=== PATIENT | female | born 1995 | race Caucasian/White ===

== ENCOUNTER 2017-01-22 04:55 | Emergency (ER) | payer BC ==
--- NOTE | 2017-01-22 08:41 | ED ORDER SUMMARY ---
..... Patient: LUIS F PATEL OrderSheet [facility] VisitID: [id number] [place] [address] 21y, F Registration Date/Time: 01/22/2017 ORDER SHEET Weight: 60.7 kg Allergies: No Known Drug Allergy GENERAL ORDERS: CBC w Diff Urgent (05:17 01/22/2017 Tricia JORDAN) (Ack 5:20 [facility] Traffic Analysis Technician) (5:22 TBowen R.N.) CMP Urgent (05:01/22/2017 Tricia JORDAN) (Ack 5:20 [facility] Traffic Analysis Technician) (5:22 TBowen R.N.) UA-Culture if indicated Urgent (05:01/22/2017 Tricia JORDAN) (Ack 5:20 [facility] Traffic Analysis Technician) (5:22 TBowen R.N.) Lipase Urgent (05:17 01/22/2017 Tricia JORDAN) (Ack 5:20 [facility] Traffic Analysis Technician) (5:22 TBowen R.N.) US Abdomen Limited (Yes) (right flank pain) Urgent (05:55 01/22/2017 Tricia JORDAN) (Ack 6:03 [facility] Traffic Analysis Technician) (8:31 LSullivan R.N.) (Cancelled: Other8:41 Tricia JORDAN) US Abdomen Complete (Yes) Urgent (08:41 01/22/2017 Tricia JORDAN) (8:50 LSullivan R.N.) MEDICATION ORDERS: IV FLUIDS: IV Saline Lock (05:17 01/22/2017 Tricia JORDAN) (5:22 TBowen R.N.) ORDER SHEET NOTES: [Electronically signed by Sara Hurtado R.N. (09:28 01/22/2017)] [Electronically signed by Fly Coleman MD (21:08 01/26/2017)] [Electronically locked/signed by Sara Hurtado R.N. (09:28 01/22/2017)]
--- NOTE | 2017-01-22 08:41 | ED CLINICAL REPORT ---
Clinical Report - Physicians/Mid Levels [facility] [address] [place] [address] 01/22/2017 4:59 Patient: LUIS F PATEL Time Seen: 05:16 Jan 22 2017. Arrived- By private vehicle. Historian- patient and mother. CPT: ER phys charges level 4 (#[id number]). HISTORY OF PRESENT ILLNESS Chief Complaint: FLANK PAIN. This started today About 2400 and is now gone. At its maximum, severity described as moderate. When seen in the E.D., it was gone. Modifying factors- worsened by movement. Relieved by rest. It is described as "pain" and sharp and it is described as located in the right flank. No nausea, vomiting or diarrhea. Similar symptoms previously: None. Recent medical care: Not recently seen/assessed. REVIEW OF SYSTEMS No constipation, black stools, hematemesis, difficulty with urination or pain with urination. No urinary frequency, fever, sore throat, chest pain or difficulty breathing. No cough, joint pain or skin rash. Currently . The patient has had chills. All systems otherwise negative, except as recorded above. PAST HISTORY See nurses notes. No history of peptic ulcer. No history of gallstones or bowel obstruction. Has not had urinary calculi. Medications: Vitamins Oral. Allergies: No Known Drug Allergy. SOCIAL HISTORY Never smoker. No alcohol use or drug use. ADDITIONAL NOTES The nursing notes have been reviewed. PHYSICAL EXAM Vital Signs: 01/22/2017 05:06 BP: 118/77. HR: 108. RR: 18. O2 saturation: 100%. Temp: 97.8 F. Pain level now: 5/10. Appearance: Alert. Patient in mild distress. Eyes: Pupils equal, round and reactive to light. Eyes normal inspection. ENT: Ears normal. Nose normal. Pharynx normal. Neck: Normal inspection. Neck supple. CVS: Normal heart rate and rhythm. Heart sounds normal. Pulses normal. Respiratory: No respiratory distress. Breath sounds normal. Chest nontender. Abdomen: Soft and nontender. Back: No CVA tenderness. (Tender over the the right paralumbar ssoft tissue.). Skin: Skin warm. Normal skin color. No rash. Extremities: Extremities exhibit normal ROM. No lower extremity edema. Neuro: Oriented X 3. No motor deficit. No sensory deficit. Reflexes normal. LABS, X-RAYS, AND EKG Abdominal Sonogram: (Mild bilateral hydroureter , no sign of kidney stone or gallbladder pathology.). The study was independently viewed by me and interpreted contemporaneously by me. Study included the upper abdomen and pelvis. Prior studies were not available for comparison. Laboratory Tests: UA-Culture if indicated: (CECILE: 01/22/2017 05:05) ( [facility] 01/22/[place] 05:46) Final results Test Result Flag Units (Reference) URINE COLOR YELLOW URINE APPEARANCE CLEAR URINE GLUCOSE NEGATIVE (NEGATIVE) URINE BILIRUBIN NEGATIVE (NEGATIVE) URINE KETONE NEGATIVE (NEGATIVE) URINE SPECIFIC GRAVITY 1.015 (1.010-1.030) URINE PH 6.5 (5.0-8.0) URINE PROTEIN NEGATIVE (NEGATIVE) URINE UROBILINOGEN 0.2 EU/dL (0.2-1.0) URINE NITRITE NEGATIVE (NEGATIVE) URINE BLOOD NEGATIVE (NEGATIVE) URINE LEUK ESTERASE NEGATIVE (NEGATIVE) URINE RBC 0-1 rbc/hpf (0-1) URINE WBC 0-1 wbc/hpf (0-1) URINE EPITHELIAL CELLS 0-1 EPI/hpf (0-5) URINE BACTERIA NONE SEEN (NONE SEEN) URINE COMMENT CULT NOT INDICATED URINE CULTURES ARE SET-UP BASED ON THE FOLLOWING CRITERIA:POSITIVE NITRITEPOSITIVE LEUKOCYTE ESTERASEGREATER THAN 10 WHITE BLOOD CELLSMODERATE (2+) OR GREATER BACTERIA CBC w Diff: (CECILE: 01/22/2017 05:13) ( [facility] [place] 01/22/2017 05:32) Final results Test Result Flag Units (Reference) WHITE BLOOD COUNT 10.2 K/uL (4.5-11.5) RED BLOOD COUNT 4.19 M/uL (4.00-5.20) HEMOGLOBIN 13.1 gm/dL (12.0-16.0) HEMATOCRIT 39.0 % (36.0-46.0) MEAN CELL VOLUME 93 fL (80-100) MEAN CORPUSCULAR HGB 31 pg (26-34) MEAN CORPUSCULAR HGB CONC 34 g/dL (31-37) RED CELL DISTRIBUTION WIDTH 13.1 % (11.6-14.8) PLATELET COUNT 260 K/uL (150-400) NEUTROPHIL % 75.3 H % (50-75) LYMPH % 18.4 L % (25-40) MONO % 5.6 % (3-14) EOSINOPHIL % 0.6 % (0-4) BASOPHIL % 0.1 % (0-2) CMP: (CECILE: 01/22/2017 05:13) ( [facility]sg[facility]cv[facility] 01/22/2017 05:41) Final results Test Result Flag Units (Reference) GLUCOSE 91 mg/dL (70-110) BUN 7 mg/dL (7-18) CREATININE 0.6 mg/dL (0.6-1.3) Estimated GFR >60 mL/min Estimated GFR- >60 mL/min Note: Persistent reduction over 3 months in eGFR<60 mL/min/1.73 m2 defines CKD. Patients with eGFR values>=60 mL/min/1.73 m2 may also have CKD if evidence ofpersistent proteinuria. Additional information may be foundat www.kidney.org. SODIUM 138 mmol/L (136-145) POTASSIUM 3.3 L mmol/L (3.5-5.1) CHLORIDE 102 mmol/L (98-107) CARBON DIOXIDE 25 mmol/L (21-32) CALCIUM 8.9 mg/dL (8.5-10.1) TOTAL PROTEIN 7.9 g/dL (6.4-8.2) ALBUMIN 3.5 g/dL (3.3-5.0) BILIRUBIN, TOTAL 0.3 mg/dL (0.0-1.0) ALKALINE PHOSPHATASE 62 U/L (46-116) AST (SGOT) 25 U/L (15-37) ALT (SGPT) 51 U/L (12-78) LIPASE 150 U/L (73-393) . PROGRESS AND PROCEDURES Course of Care: Heplock. Patient/family counseled. Disposition: Discharged. Condition: stable. CLINICAL IMPRESSION Acute lumbar strain. INSTRUCTIONS Apply moist heat for 15-20 minutes three times a day for one weeks until better. No strenuous activity. (Massage may help. Avoid bending and lifting.). Warnings: Further evaluation is necessary. GENERAL WARNINGS: Return or contact your physician immediately if your condition worsens or changes unexpectedly, if not improving as expected, or if other problems arise. Prescription Medications: Hydrocodone/APAP 5mg / 325mg: take 1 orally every 6 hours as needed for pain. Dispense twelve (12). No refill. Flexeril 5 mg: take 1 orally every 8 hours as needed for muscle spasm or pain. Dispense ten (10). No refills. Follow-up: Follow up with your doctor Family Doctor. in one week. Call for an appointment. Understanding of the discharge instructions verbalized by patient and parent. (Electronically signed by Fly Coleman MD 01/26/2017 21:08)
--- NOTE | 2017-01-22 08:41 | ED NURSING NOTES ---
Clinical Report - Nurses [facility] [address] [place] [address] 01/22/2017 4:59 Patient: LUIS F PATEL TRIAGE Triage time 05:06. Acuity: LEVEL 4. --05:10 Briseyda Gomes 05:06 01/22/17. BP: 118/77. HR: 108. RR: 18. O2 saturation: 100%. Temp: 97.8 F. Pain level now: 01/13. --05:10 Briseyda Gomes Chief Complaint: LOW BACK PAIN and FLANK PAIN. --09:28 Sara Hurtado R.N. Weight: 60.7 kg. Height/Length: 66 inches. BMI: 21.6. --05:08 Briseyda Gomes Medications Vitamins Oral. --09:25 Sara Hurtado R.N. Allergies No Known Drug Allergy. --09:25 Sara Hurtado R.N. History Arrived by private vehicle. Historian: patient. Accompanied by family. ( pt complains of right kidney pain that moves into her stomach). This started last night. She has had flank pain. Treatment PROCESSING MGR: None. PAST MEDICAL HX: Last normal menstrual period- Aug. Currently . Has had care by private doctor. SOCIAL HX: Never smoker. No alcohol use or drug use. No infectious disease exposure. SELF HARM ASSESSMENT: A self harm assessment was performed. The patient answered "no" to the question "Have you recently felt down, depressed, or hopeless?", "Have you noticed less interest or pleasure in doing things?", "Do you have thoughts of harming or killing yourself?", "Are you here because you tried to hurt yourself?", "Have you ever tried to hurt yourself before today?", "Have you recently had thoughts about harming or killing others?" and "Do you have any dangerous items in your possession?". FALL RISK ASSESSMENT: Fall risk assessment completed. No fall risk identified. NUTRITIONAL RISK ASSESSMENT: The nutritional risk assessment revealed no deficiencies. FUNCTIONAL ASSESSMENT: Functional assessment: no impairments noted. LEARNING NEEDS ASSESSMENT: The learning needs assessment revealed no barriers. ABUSE ASSESSMENT: Abuse assessment: The patient was asked "Do you feel safe in your home?". SKIN INTEGRITY ASSESSMENT: Skin integrity risk assessment completed. No skin integrity risk identified. --05:10 Briseyda Gomes Interventions ID band on patient. To treatment room. --05:10 Briseyda Gomes PHYSICAL ASSESSMENT Ambulatory to room. GENERAL / NEURO / PSYCH: Alert. Oriented X 4. Appears in no acute distress. HEENT: Mucous membranes are pink. RESPIRATORY: Respirations not labored. Breath sounds within normal limits. CVS: Normal heart rate and rhythm. Capillary refill less than 2 seconds. GI / : Abdomen soft and nontender. Bowel sounds within normal limits. No vaginal bleeding. No vaginal discharge. SKIN: Skin is warm and dry. --05:10 Briseyda Gomes NURSING PROGRESS NOTES Patient gowned. Patient identifiers checked. Call light placed in reach. Side rails up x 2. Bed placed in lowest position. Brakes of bed on. --05:11 Briseyda Gomes 05:22 01/22/2017 Site #1 started via IV in the left antecubital space with an 20g angiocath, with aseptic technique and good blood return; one attempt. Blood drawn: rainbow set. Labeled in the presence of the patient and sent to the lab. Saline lock flushed with 10 mL saline. --05:22 Briseyda Gomes ( 0515: I started a 20g IV on the left AC and troy labs from same, flushed with 20cc saline. No complications.). --05:36 Evangelist Duque R.N. ( report given Sara). --07:06 Briseyda Gomes 07:44 01/22/17. ( Ultrasound in room). --07:44 Sara Hurtado R.N. 08:20. ( ERMD talking with patient.). --08:30 Sara Hurtado R.N. 09:00 01/22/2017 Site #1 removed upon discharge. Catheter intact. Bandage applied. --09:25 Sara Hurtado R.N. DISPOSITION / DISCHARGE Departure time: 0900. Condition at departure: improved. No learning barriers present. Discharge instructions provided and reviewed with the patient. Reviewed medication(s) information. Prescription(s) given to the patient. Reviewed referral to family practice. Verbalized understanding. Written instructions provided. The patient was discharged home and accompanied by parent. She left the Emergency Department ambulatory and via private vehicle. --09:24 Sara Hurtado R.N. 09:22 01/22/17. BP: 110/63. HR: 78. RR: 18. O2 saturation: 100%. Temp: 98.2 F. Pain level now: 4/10. Additional comments: Pt states the ice pack helped, teaching done for discharge to alternate ice with warm packs, as needed to help pain. --09:24 Sara Hurtado R.N. Locked/Released at 01/22/2017 9:28 by Sara Hurtado R.N.
--- NOTE | 2017-01-22 08:41 | ED CLINICAL REPORT ---
Clinical Report - Physicians/Mid Levels [facility] [address] [place] [address] 01/22/2017 4:59 Patient: LUIS F PATEL Time Seen: 05:16 Jan 22 2017. Arrived- By private vehicle. Historian- patient and mother. CPT: ER phys charges level 4 (#[id number]). HISTORY OF PRESENT ILLNESS Chief Complaint: FLANK PAIN. This started today About 2400 and is now gone. At its maximum, severity described as moderate. When seen in the E.D., it was gone. Modifying factors- worsened by movement. Relieved by rest. It is described as "pain" and sharp and it is described as located in the right flank. No nausea, vomiting or diarrhea. Similar symptoms previously: None. Recent medical care: Not recently seen/assessed. REVIEW OF SYSTEMS No constipation, black stools, hematemesis, difficulty with urination or pain with urination. No urinary frequency, fever, sore throat, chest pain or difficulty breathing. No cough, joint pain or skin rash. Currently . The patient has had chills. All systems otherwise negative, except as recorded above. PAST HISTORY See nurses notes. No history of peptic ulcer. No history of gallstones or bowel obstruction. Has not had urinary calculi. Medications: Vitamins Oral. Allergies: No Known Drug Allergy. SOCIAL HISTORY Never smoker. No alcohol use or drug use. ADDITIONAL NOTES The nursing notes have been reviewed. PHYSICAL EXAM Vital Signs: 01/22/2017 05:06 BP: 118/77. HR: 108. RR: 18. O2 saturation: 100%. Temp: 97.8 F. Pain level now: 5/10. Appearance: Alert. Patient in mild distress. Eyes: Pupils equal, round and reactive to light. Eyes normal inspection. ENT: Ears normal. Nose normal. Pharynx normal. Neck: Normal inspection. Neck supple. CVS: Normal heart rate and rhythm. Heart sounds normal. Pulses normal. Respiratory: No respiratory distress. Breath sounds normal. Chest nontender. Abdomen: Soft and nontender. Back: No CVA tenderness. (Tender over the the right paralumbar ssoft tissue.). Skin: Skin warm. Normal skin color. No rash. Extremities: Extremities exhibit normal ROM. No lower extremity edema. Neuro: Oriented X 3. No motor deficit. No sensory deficit. Reflexes normal. LABS, X-RAYS, AND EKG Abdominal Sonogram: (Mild bilateral hydroureter , no sign of kidney stone or gallbladder pathology.). The study was independently viewed by me and interpreted contemporaneously by me. Study included the upper abdomen and pelvis. Prior studies were not available for comparison. Laboratory Tests: UA-Culture if indicated: (CECILE: 01/22/2017 05:05) ( [facility] 05:46) Final results Test Result Flag Units (Reference) URINE COLOR YELLOW URINE APPEARANCE CLEAR URINE GLUCOSE NEGATIVE (NEGATIVE) URINE BILIRUBIN NEGATIVE (NEGATIVE) URINE KETONE NEGATIVE (NEGATIVE) URINE SPECIFIC GRAVITY 1.015 (1.010-1.030) URINE PH 6.5 (5.0-8.0) URINE PROTEIN NEGATIVE (NEGATIVE) URINE UROBILINOGEN 0.2 EU/dL (0.2-1.0) URINE NITRITE NEGATIVE (NEGATIVE) URINE BLOOD NEGATIVE (NEGATIVE) URINE LEUK ESTERASE NEGATIVE (NEGATIVE) URINE RBC 0-1 rbc/hpf (0-1) URINE WBC 0-1 wbc/hpf (0-1) URINE EPITHELIAL CELLS 0-1 EPI/hpf (0-5) URINE BACTERIA NONE SEEN (NONE SEEN) URINE COMMENT CULT NOT INDICATED URINE CULTURES ARE SET-UP BASED ON THE FOLLOWING CRITERIA:POSITIVE NITRITEPOSITIVE LEUKOCYTE ESTERASEGREATER THAN 10 WHITE BLOOD CELLSMODERATE (2+) OR GREATER BACTERIA CBC w Diff: (CECILE: 01/22/2017 05:13) ( [facility] [place] 01/[place] 05:32) Final results Test Result Flag Units (Reference) WHITE BLOOD COUNT 10.2 K/uL (4.5-11.5) RED BLOOD COUNT 4.19 M/uL (4.00-5.20) HEMOGLOBIN 13.1 gm/dL (12.0-16.0) HEMATOCRIT 39.0 % (36.0-46.0) MEAN CELL VOLUME 93 fL (80-100) MEAN CORPUSCULAR HGB 31 pg (26-34) MEAN CORPUSCULAR HGB CONC 34 g/dL (31-37) RED CELL DISTRIBUTION WIDTH 13.1 % (11.6-14.8) PLATELET COUNT 260 K/uL (150-400) NEUTROPHIL % 75.3 H % (50-75) LYMPH % 18.4 L % (25-40) MONO % 5.6 % (3-14) EOSINOPHIL % 0.6 % (0-4) BASOPHIL % 0.1 % (0-2) CMP: (CECILE: 01/22/2017 05:13) ( MsgRcvd 01/22/2017 05:41) Final results Test Result Flag Units (Reference) GLUCOSE 91 mg/dL (70-110) BUN 7 mg/dL (7-18) CREATININE 0.6 mg/dL (0.6-1.3) Estimated GFR >60 mL/min Estimated GFR- >60 mL/min Note: Persistent reduction over 3 months in eGFR<60 mL/min/1.73 m2 defines CKD. Patients with eGFR values>=60 mL/min/1.73 m2 may also have CKD if evidence ofpersistent proteinuria. Additional information may be foundat www.kidney.org. SODIUM 138 mmol/L (136-145) POTASSIUM 3.3 L mmol/L (3.5-5.1) CHLORIDE 102 mmol/L (98-107) CARBON DIOXIDE 25 mmol/L (21-32) CALCIUM 8.9 mg/dL (8.5-10.1) TOTAL PROTEIN 7.9 g/dL (6.4-8.2) ALBUMIN 3.5 g/dL (3.3-5.0) BILIRUBIN, TOTAL 0.3 mg/dL (0.0-1.0) ALKALINE PHOSPHATASE 62 U/L (46-116) AST (SGOT) 25 U/L (15-37) ALT (SGPT) 51 U/L (12-78) LIPASE 150 U/L (73-393) . PROGRESS AND PROCEDURES Course of Care: Heplock. Patient/family counseled. Disposition: Discharged. Condition: stable. CLINICAL IMPRESSION Acute lumbar strain. INSTRUCTIONS Apply moist heat for 15-20 minutes three times a day for one weeks until better. No strenuous activity. (Massage may help. Avoid bending and lifting.). Warnings: Further evaluation is necessary. GENERAL WARNINGS: Return or contact your physician immediately if your condition worsens or changes unexpectedly, if not improving as expected, or if other problems arise. Prescription Medications: Hydrocodone/APAP 5mg / 325mg: take 1 orally every 6 hours as needed for pain. Dispense twelve (12). No refill. Flexeril 5 mg: take 1 orally every 8 hours as needed for muscle spasm or pain. Dispense ten (10). No refills. Follow-up: Follow up with your doctor Family Doctor. in one week. Call for an appointment. Understanding of the discharge instructions verbalized by patient and parent. (Electronically signed by Fly Coleman MD 01/26/2017 21:08)
--- NOTE | 2017-01-22 08:41 | ED ORDER SUMMARY ---
..... Patient: LUIS F PATEL OrderSheet [facility] VisitID: [id number] [place] [address] 21y, F Registration Date/Time: 01/22/2017 ORDER SHEET Weight: 60.7 kg Allergies: No Known Drug Allergy GENERAL ORDERS: CBC w Diff Urgent (05:17 01/22/2017 Tricia JORDAN) (Ack 5:20 CHagerty ER Hand Shoe Cutter) (5:22 TBowen R.N.) CMP Urgent (05:01/22/2017 Tricia JORDAN) (Ack 5:20 [facility] ER Hand Shoe Cutter) (5:22 TBowen R.N.) UA-Culture if indicated Urgent (05:01/22/2017 Tricia JORDAN) (Ack 5:20 [facility]ty ER Hand Shoe Cutter) (5:22 TBowen R.N.) Lipase Urgent (05:17 01/22/2017 Tricia JORDAN) (Ack 5:20 CHagerty ER Hand Shoe Cutter) (5:22 TBowen R.N.) US Abdomen Limited (Yes) (right flank pain) Urgent (05:55 01/22/2017 Tricia JORDAN) (Ack 6:03 CHagerty ER Hand Shoe Cutter) (8:31 LSullivan R.N.) (Cancelled: Other8:41 Tricia JORDAN) US Abdomen Complete (Yes) Urgent (08:41 01/22/2017 Tricia JORDAN) (8:50 LSullivan R.N.) MEDICATION ORDERS: IV FLUIDS: IV Saline Lock (05:17 01/22/2017 Tricia JORDAN) (5:22 TBowen R.N.) ORDER SHEET NOTES: [Electronically signed by Sara Hurtado R.N. (09:28 01/22/2017)] [Electronically signed by Fly Coleman MD (21:08 01/26/2017)] [Electronically locked/signed by Sara Hurtado R.N. (09:28 01/22/2017)]
--- NOTE | 2017-01-22 09:43 | DIAGNOSTIC IMAGING REPORT ---
PROCEDURE: US ABDOMEN ULTRASOUND-COMPLETE INDICATION: ABDOMINAL PAIN TECHNIQUE: Dneg scale and color Doppler sonographic images of the abdomen were obtained without comparison. COMPARISON: None. FINDINGS: The liver is normal in size, contour, and echotexture. No mass or intrahepatic biliary dilatation. The gallbladder is normal without stones or sludge. The wall is normal thickness measuring 1.7 mm No pericholecystic fluid or Larsen sign. The extrahepatic common duct is normal measuring 2.6 mm The visualized pancreas is normal without ductal dilatation or peripancreatic fluid collection. The abdominal aorta is normal in its course and caliber. The retrohepatic inferior vena cava is patent. There is appropriate hepatopetal flow in the portal vein. The right kidney measures 11.4 x 5.7 x 3.6 cm in length. The left kidney measures 9.8 x 6.1 x 5.9 cm in length. Both kidneys demonstrate mild nonobstructing hydronephrosis. Bilateral ureter jets were seen. Color Doppler imaging demonstrates normal blood flow in each kidney. The spleen is normal in size measuring 10.1 cm in length. There is no perihepatic or perisplenic ascites. Viable fetus seen with a heart rate of 162 IMPRESSION: 1. Normal abdominal ultrasound. viable fetus, heart rate of 162
--- NOTE | 2017-01-26 21:08 | ED MED RECONCILIATION SUMMARY ---
Patient: LUIS F PATEL Medication Reconciliation Report [facility] VisitID: [id number] [place] [address] 21y, F Registration Date/Time: 01/22/2017 Weight: 60.7 kg Height/Length: 66 in. BMI: 21.6 ALLERGIES: No Known Drug Allergy The patient's Home Medications are listed below: THE FOLLOWING MEDICATIONS NEED TO BE RECONCILED: Vitamins Oral The source(s) of the original Home Medication information: Not obtained. The following Medications were given to the patient in the Emergency Department: None. The following Medications were prescribed to the patient: Hydrocodone/APAP 5mg / 325mg: take 1 orally every 6 hours as needed for pain. Dispense twelve (12). No refill. -- Fly Coleman MD Flexeril 5 mg: take 1 orally every 8 hours as needed for muscle spasm or pain. Dispense ten (10). No refills. -- Fly Coleman MD
--- NOTE | 2017-01-26 21:08 | ED MED RECONCILIATION SUMMARY ---
Patient: LUIS F PATEL Medication Reconciliation Report [facility] VisitID: [id number] [place] [address] 21y, F Registration Date/Time: 01/22/2017 Weight: 60.7 kg Height/Length: 66 in. BMI: 21.6 ALLERGIES: No Known Drug Allergy The patient's Home Medications are listed below: THE FOLLOWING MEDICATIONS NEED TO BE RECONCILED: Vitamins Oral The source(s) of the original Home Medication information: Not obtained. The following Medications were given to the patient in the Emergency Department: None. The following Medications were prescribed to the patient: Hydrocodone/APAP 5mg / 325mg: take 1 orally every 6 hours as needed for pain. Dispense twelve (12). No refill. -- Fly Coleman MD Flexeril 5 mg: take 1 orally every 8 hours as needed for muscle spasm or pain. Dispense ten (10). No refills. -- Fly Coleman MD
--- NOTE | 2017-01-26 21:08 | ED DISCHARGE INSTRUCTIONS ---
Patient: LUIS F PATEL General Instructions [facility] VisitID: [id number] [place] [address] 21y, F Registration Date/Time: 01/22/2017 Acute lumbar strain. INSTRUCTIONS Apply moist heat for 15-20 minutes three times a day for one weeks until better. No strenuous activity. (Massage may help. Avoid bending and lifting.). Warnings: Further evaluation is necessary. GENERAL WARNINGS: Return or contact your physician immediately if your condition worsens or changes unexpectedly, if not improving as expected, or if other problems arise. Prescription Medications: Hydrocodone/APAP 5mg / 325mg: take 1 orally every 6 hours as needed for pain. Dispense twelve (12). No refill. Flexeril 5 mg: take 1 orally every 8 hours as needed for muscle spasm or pain. Dispense ten (10). No refills. Follow-up: Follow up with your doctor Family Doctor. in one week. Call for an appointment. Understanding of the discharge instructions verbalized by patient and parent. ADDITIONAL INFORMATION Back Pain [Acute Or Chronic] Back pain is usually caused by an injury to the muscles or ligaments of the spine. Sometimes the disks that separate each bone in the spine may bulge and cause pain by pressing on a nearby nerve. Back pain may also appear after a sudden twisting/bending force (such as in a car accident), after a simple awkward movement, or lifting something heavy with poor body positioning. In either case, muscle spasm is often present and adds to the pain. Acute back pain usually gets better in one to two weeks. Back pain related to disk disease, arthritis in the spinal joints or spinal stenosis (narrowing of the spinal canal) can become chronic and last for months or years. Unless you had a physical injury (for example, a car accident or fall) X-rays are usually not ordered for the initial evaluation of back pain. If pain continues and does not respond to medical treatment, x-rays and other tests may be performed at a later time. Home Care: You may need to stay in bed the first few days. But, as soon as possible, begin sitting or walking to avoid problems with prolonged bed rest (muscle weakness, worsening back stiffness and pain, blood clots in the legs). When in bed, try to find a position of comfort. A firm mattress is best. Try lying flat on your back with pillows under your knees. You can also try lying on your side with your knees bent up towards your chest and a pillow between your knees. Avoid prolonged sitting. This puts more stress on the lower back than standing or walking. During the first two days after injury, apply an ICE PACK to the painful area for 20 minutes every 2-4 hours. This will reduce swelling and pain. HEAT (hot shower, hot bath or heating pad) works well for muscle spasm. You can start with ice, then switch to heat after two days. Some patients feel best alternating ice and heat treatments. Use the one method that feels the best to you. You may use acetaminophen (Tylenol) or ibuprofen (Motrin, Advil) to control pain, unless another pain medicine was prescribed. [NOTE: If you have chronic liver or kidney disease or ever had a stomach ulcer or GI bleeding, talk with your doctor before using these medicines.] Be aware of safe lifting methods and do not lift anything over 15 pounds until all the pain is gone. Follow Up with your doctor or this facility if your symptoms do not start to improve after one week. Physical therapy may be needed. [NOTE: If X-rays were taken, they will be reviewed by a radiologist. You will be notified of any new findings that may affect your care.] Get Prompt Medical Attention if any of the following occur: Pain becomes worse or spreads to your legs Weakness or numbness in one or both legs Loss of bowel or bladder control Numbness in the groin or genital area Hydrocodone Bitartrate, Acetaminophen Oral tablet What is this medicine? ACETAMINOPHEN; HYDROCODONE (a set a BRIAN chino fen; valentin droe KOE done) is a pain reliever. It is used to treat mild to moderate pain. How should I use this medicine? Take this medicine by mouth. Swallow it with a full glass of water. Follow the directions on the prescription label. If the medicine upsets your stomach, take the medicine with food or milk. Do not take more than you are told to take. Talk to your instructor of sociology regarding the use of this medicine in children. This medicine is not approved for use in children. What side effects may I notice from receiving this medicine? Side effects that you should report to your doctor or health home care associate as soon as possible: allergic reactions like skin rash, itching or hives, swelling of the face, lips, or tongue breathing problems confusion feeling faint or lightheaded, falls stomach pain yellowing of the eyes or skin Side effects that usually do not require medical attention (report to your doctor or health home care associate if they continue or are bothersome): nausea, vomiting stomach upset What may interact with this medicine? alcohol antihistamines isoniazid medicines for depression, anxiety, or psychotic disturbances medicines for sleep muscle relaxants naltrexone narcotic medicines (opiates) for pain phenobarbital ritonavir tramadol What if I miss a dose? If you miss a dose, take it as soon as you can. If it is almost time for your next dose, take only that dose. Do not take double or extra doses. Where should I keep my medicine? Keep out of the reach of children. This medicine can be abused. Keep your medicine in a safe place to protect it from theft. Do not share this medicine with anyone. Selling or giving away this medicine is dangerous and against the law. Store at room temperature between 15 and 30 degrees C (59 and 86 degrees F). Protect from light. Keep container tightly closed. Throw away any unused medicine after the expiration date. Discard unused medicine and used packaging carefully. Pets and children can be harmed if they find used or lost packages. What should I tell my health care provider before I take this medicine? They need to know if you have any of these conditions: brain tumor Crohn's disease, inflammatory bowel disease, or ulcerative colitis drink more than 3 alcohol-containing drinks per day drug abuse or addiction head injury heart or circulation problems kidney disease or problems going to the bathroom liver disease lung disease, asthma, or breathing problems an unusual or allergic reaction to acetaminophen, hydrocodone, other opioid analgesics, other medicines, foods, dyes, or preservatives or trying to get breast-feeding What should I watch for while using this medicine? Tell your doctor or health home care associate if your pain does not go away, if it gets worse, or if you have new or a different type of pain. You may develop tolerance to the medicine. Tolerance means that you will need a higher dose of the medicine for pain relief. Tolerance is normal and is expected if you take the medicine for a long time. Do not suddenly stop taking your medicine because you may develop a severe reaction. Your body becomes used to the medicine. This does NOT mean you are addicted. Addiction is a behavior related to getting and using a drug for a non-medical reason. If you have pain, you have a medical reason to take pain medicine. Your doctor will tell you how much medicine to take. If your doctor wants you to stop the medicine, the dose will be slowly lowered over time to avoid any side effects. You may get drowsy or dizzy when you first start taking the medicine or change doses. Do not drive, use machinery, or do anything that may be dangerous until you know how the medicine affects you. Stand or sit up slowly. There are different types of narcotic medicines (opiates) for pain. If you take more than one type at the same time, you may have more side effects. Give your health care provider a list of all medicines you use. Your doctor will tell you how much medicine to take. Do not take more medicine than directed. Call emergency for help if you have problems breathing. The medicine will cause constipation. Try to have a bowel movement at least every 2 to 3 days. If you do not have a bowel movement for 3 days, call your doctor or health home care associate. Too much acetaminophen can be very dangerous. Do not take Tylenol (acetaminophen) or medicines that contain acetaminophen with this medicine. Many non-prescription medicines contain acetaminophen. Always read the labels carefully. Cyclobenzaprine Hydrochloride Oral tablet What is this medicine? CYCLOBENZAPRINE (duglas moeller) is a muscle relaxer. It is used to treat muscle pain, spasms, and stiffness. How should I use this medicine? Take this medicine by mouth with a glass of water. Follow the directions on the prescription label. If this medicine upsets your stomach, take it with food or milk. Take your medicine at regular intervals. Do not take it more often than directed. Talk to your instructor of sociology regarding the use of this medicine in children. Special care may be needed. What side effects may I notice from receiving this medicine? Side effects that you should report to your doctor or health home care associate as soon as possible: allergic reactions like skin rash, itching or hives, swelling of the face, lips, or tongue chest pain fast heartbeat hallucinations seizures vomiting Side effects that usually do not require medical attention (report to your doctor or health home care associate if they continue or are bothersome): headache What may interact with this medicine? Do not take this medicine with any of the following medications: cisapride droperidol flecainide grepafloxacin halofantrine levomethadyl MAOIs like Carbex, Eldepryl, Marplan, Nardil, and Parnate nilotinib pimozide probucol sertindole This medicine may also interact with the following medications: abarelix alcohol contrast dyes dolasetron guanethidine medicines for cancer medicines for depression, anxiety, or psychotic disturbances medicines to treat an irregular heartbeat medicines used for sleep or numbness during surgery or procedure methadone octreotide ondansetron palonosetron phenothiazines like chlorpromazine, mesoridazine, prochlorperazine, thioridazine some medicines for infection like alfuzosin, chloroquine, clarithromycin, levofloxacin, mefloquine, pentamidine, troleandomycin tramadol vardenafil What if I miss a dose? If you miss a dose, take it as soon as you can. If it is almost time for your next dose, take only that dose. Do not take double or extra doses. Where should I keep my medicine? Keep out of the reach of children. Store at room temperature between 15 and 30 degrees C (59 and 86 degrees F). Keep container tightly closed. Throw away any unused medicine after the expiration date. What should I tell my health care provider before I take this medicine? They need to know if you have any of these conditions: heart disease, irregular heartbeat, or previous heart attack liver disease thyroid problem an unusual or allergic reaction to cyclobenzaprine, tricyclic antidepressants, lactose, other medicines, foods, dyes, or preservatives or trying to get breast-feeding What should I watch for while using this medicine? Check with your doctor or health home care associate if your condition does not improve within 1 to 3 weeks. You may get drowsy or dizzy when you first start taking the medicine or change doses. Do not drive, use machinery, or do anything that may be dangerous until you know how the medicine affects you. Stand or sit up slowly. Your mouth may get dry. Drinking water, chewing sugarless gum, or sucking on hard candy may help. You have been given the following additional information: Back Pain (Acute Or Chronic) Hydrocodone Bitartrate, Acetaminophen Oral tablet Cyclobenzaprine Hydrochloride Oral tablet No strenuous activity. (Electronically signed by Fly Coleman MD 01/26/2017 21:08)
--- NOTE | 2017-01-26 21:08 | ED MAR SUMMARY ---
..... Medication Administration Record [facility] [address] [place], [place] [id number] Patient: LUIS F PATEL Visit ID: [id number] 21y, F Weight: 60.7 kg Height/Length: 66 in BMI: 21.6 ALLERGIES: No Known Drug Allergy
--- NOTE | 2017-01-26 21:08 | ED MAR SUMMARY ---
..... Medication Administration Record [facility] [address] [place], [place] [id number] Patient: LUIS F PATEL Visit ID: [id number] 21y, F Weight: 60.7 kg Height/Length: 66 in BMI: 21.6 ALLERGIES: No Known Drug Allergy
== END 2017-01-22 09:00 | disposition home or self-care (01) ==
LOC: ED SRH 04:55
DX: S39.012A Strain of muscle, fascia and tendon of lower back, initial encounter (principal); X58.XXXA Exposure to other specified factors, initial encounter; Y93.9 Activity, unspecified; Y92.9 Unspecified place or not applicable; Y99.9 Unspecified external cause status
CPT/HCPCS: 90004; 90100; 92235; 95059